=== PATIENT | female | born 1995 | race Caucasian/White ===

== ENCOUNTER → 2016-09-28 | Outpatient (CLI) | payer OTHER ==
[~2016-09-28] MED LIST: BREWER'S YEAST500 MG PO; COLACE 100MG C100 MG PO; IBUPROFEN600 MG PO; LEVAQUIN500 MG PO; NORCO 5-325 TA1 EACH PO; PRENATAL ONE T1 EACH PO
== END ==
LOC: US 09:47
DX: R10.13 Epigastric pain (principal); R10.11 Right upper quadrant pain; K80.50 Calculus of bile duct without cholangitis or cholecystitis without obstruction
CPT/HCPCS: 76705

== ENCOUNTER 2016-09-30 15:14 | Observation (INO) | payer OTHER ==
[2016-09-30 15:55] LABS: HEMOGLOBIN 11.2 gm/dl (12.3-15.3); RED BLOOD COUNT 3.79 M/UL (4.00-5.10); WHITE BLOOD COUNT 7.4 K/UL (4.5-11.0)
[2016-09-30 16:12] LABS: BUN/CREATININE RATIO 14 (0-10)
[2016-12-08] MEDS ORDERED: PRENATAL ONE T1 EACH PO (10:00)
[2016-12-08] MEDS ORDERED: BREWER'S YEAST500 MG PO (10:00)
[2016-12-10] MEDS ORDERED: LEVAQUIN500 MG PO (13:22)
[2017-02-04] MEDS ORDERED: COLACE 100MG C100 MG PO (10:55)
[2017-02-04] MEDS ORDERED: IBUPROFEN600 MG PO (10:56)
[2017-02-04] MEDS ORDERED: NORCO 5-325 TA1 EACH PO (10:56)
== END 2016-10-01 12:10 | disposition home or self-care (01) ==
LOC: GENOP 15:14 → OB 22:10
PROVIDERS: ADMIT Obstetrics & Gynecology
DX: O99.89 Other specified diseases and conditions complicating pregnancy, childbirth and the puerperium (principal); R03.0 Elevated blood-pressure reading, without diagnosis of hypertension; O99.213 Obesity complicating pregnancy, third trimester; E66.9 Obesity, unspecified; Z3A.33 33 weeks gestation of pregnancy; Z90.89 Acquired absence of other organs
CPT/HCPCS: 36415; 80053; 81001; 83615; 84550; 85025; G0378; G0463

== ENCOUNTER → 2016-10-01 | Outpatient (CLI) | payer OTHER ==
[2016-10-01 17:18] LABS: URINE TOTAL PROTEIN 9 mg/dl
== END ==
LOC: LBRF 16:30
PROVIDERS: Obstetrics & Gynecology
DX: R80.9 Proteinuria, unspecified (principal)
CPT/HCPCS: 84156

== ENCOUNTER 2016-10-02 23:54 | Outpatient (CLI) | payer OTHER ==
[2016-12-08] MEDS ORDERED: PRENATAL ONE T1 EACH PO (10:00)
[2016-12-08] MEDS ORDERED: BREWER'S YEAST500 MG PO (10:00)
[2016-12-10] MEDS ORDERED: LEVAQUIN500 MG PO (13:22)
[2017-02-04] MEDS ORDERED: COLACE 100MG C100 MG PO (10:55)
[2017-02-04] MEDS ORDERED: NORCO 5-325 TA1 EACH PO (10:56)
[2017-02-04] MEDS ORDERED: IBUPROFEN600 MG PO (10:56)
== END 2016-10-03 01:13 | disposition home or self-care (01) ==
LOC: GENOP 23:54
DX: O99.89 Other specified diseases and conditions complicating pregnancy, childbirth and the puerperium (principal); R07.89 Other chest pain; R03.0 Elevated blood-pressure reading, without diagnosis of hypertension; Z3A.33 33 weeks gestation of pregnancy
CPT/HCPCS: G0463

== ENCOUNTER 2016-10-11 22:50 | Outpatient (CLI) | payer OTHER ==
[2016-12-08] MEDS ORDERED: PRENATAL ONE T1 EACH PO (10:00)
[2016-12-08] MEDS ORDERED: BREWER'S YEAST500 MG PO (10:00)
[2016-12-10] MEDS ORDERED: LEVAQUIN500 MG PO (13:22)
[2017-02-04] MEDS ORDERED: COLACE 100MG C100 MG PO (10:55)
[2017-02-04] MEDS ORDERED: NORCO 5-325 TA1 EACH PO (10:56)
[2017-02-04] MEDS ORDERED: IBUPROFEN600 MG PO (10:56)
== END 2016-10-12 00:42 | disposition home or self-care (01) ==
LOC: GENOP 22:50
DX: O36.8130 Decreased fetal movements, third trimester, not applicable or unspecified (principal); Z3A.33 33 weeks gestation of pregnancy
CPT/HCPCS: G0463

== ENCOUNTER 2016-10-27 16:04 | Inpatient (IN) | payer OTHER ==
[~2016-10-27] VITALS: Ht 160 cm; Wt 118.4 kg
[2016-10-27 16:47] LABS: HEMOGLOBIN 12.1 gm/dl (12.3-15.3); RED BLOOD COUNT 4.06 M/UL (4.00-5.10); WHITE BLOOD COUNT 8.3 K/UL (4.5-11.0)
[2016-10-29 04:50] LABS: HEMOGLOBIN 10.7 gm/dl (12.3-15.3)
[2016-12-08] MEDS ORDERED: BREWER'S YEAST500 MG PO (10:00)
[2016-12-08] MEDS ORDERED: PRENATAL ONE T1 EACH PO (10:00)
[2016-12-10] MEDS ORDERED: LEVAQUIN500 MG PO (13:22)
[2017-02-04] MEDS ORDERED: COLACE 100MG C100 MG PO (10:55)
[2017-02-04] MEDS ORDERED: NORCO 5-325 TA1 EACH PO (10:56)
[2017-02-04] MEDS ORDERED: IBUPROFEN600 MG PO (10:56)
== END 2016-10-30 12:31 | disposition home or self-care (01) | DRG 775 ==
LOC: GENOP 16:04 → OB 16:28
PROVIDERS: ADMIT Obstetrics & Gynecology
PROC: 0U7C7ZZ Dilation of Cervix, Via Natural or Artificial Opening (ICD-10-PCS; principal; 2016-10-27)
PROC: 3E033VJ Introduction of Other Hormone into Peripheral Vein, Percutaneous Approach (ICD-10-PCS; principal; 2016-10-27)
PROC: 10907ZC Drainage of Amniotic Fluid, Therapeutic from Products of Conception, Via Natural or Artificial Opening (ICD-10-PCS; 2016-10-28)
PROC: 0KQM0ZZ Repair Perineum Muscle, Open Approach (ICD-10-PCS; 2016-10-28)
PROC: 10E0XZZ Delivery of Products of Conception, External Approach (ICD-10-PCS; 2016-10-28)
PROC: 3E0234Z Introduction of Serum, Toxoid and Vaccine into Muscle, Percutaneous Approach (ICD-10-PCS; 2016-10-29)
DX: O13.4 Gestational [pregnancy-induced] hypertension without significant proteinuria, complicating childbirth (principal); Z68.41 Body mass index [BMI] 40.0-44.9, adult; O70.1 Second degree perineal laceration during delivery; O36.8130 Decreased fetal movements, third trimester, not applicable or unspecified; E66.9 Obesity, unspecified; Z3A.37 37 weeks gestation of pregnancy; Z37.0 Single live birth; Z88.1 Allergy status to other antibiotic agents; Z82.69 Family history of other diseases of the musculoskeletal system and connective tissue; Z83.3 Family history of diabetes mellitus; Z23 Encounter for immunization
CPT/HCPCS: 36415; 51702; 81001; 82800; 85014; 85018; 85025; 90715; J2300; J2590; J3010; J7120

== ENCOUNTER → 2017-02-02 | Outpatient (CLI) | payer OTHER | LOC: KOH-I 15:13 | DX: T83.39XA Other mechanical complication of intrauterine contraceptive device, initial encounter (principal) | CPT/HCPCS: 74176 ==

== ENCOUNTER → 2017-02-04 | Day surgery (SDC) | payer OTHER ==
[2017-02-04 07:59] LABS: HEMOGLOBIN 13.1 gm/dl (12.3-15.3); RED BLOOD COUNT 4.56 M/UL (4.00-5.10); WHITE BLOOD COUNT 6.6 K/UL (4.5-11.0)
== END | disposition home or self-care (01) ==
LOC: OR 07:25
PROVIDERS: Obstetrics & Gynecology
PROC: 0UPD4HZ Removal of Contraceptive Device from Uterus and Cervix, Percutaneous Endoscopic Approach (ICD-10-PCS; principal; 2017-02-04 08:30)
DX: T83.32XA Displacement of intrauterine contraceptive device, initial encounter (principal); E66.9 Obesity, unspecified; Z88.1 Allergy status to other antibiotic agents; Z88.0 Allergy status to penicillin; Z79.899 Other long term (current) drug therapy; Z68.41 Body mass index [BMI] 40.0-44.9, adult; Y83.1 Surgical operation with implant of artificial internal device as the cause of abnormal reaction of the patient, or of later complication, without mention of misadventure at the time of the procedure
CPT/HCPCS: 36415; 76000; 81001; 85025; J1885; J2250; J2405; J2795; J7120